=== PATIENT | female | born 1970 | race Caucasian/White ===

== ENCOUNTER 2017-09-22 02:34 | Emergency (ER) | payer OTHER ==
[~2017-09-22] VITALS: Ht 167.6 cm; Wt 69.7 kg
[2017-09-22 02:36] VITALS: BP 169/91
[2017-09-22] MEDS ORDERED: LEVOTHYROXINE (02:46)
[2017-09-22] MEDS ORDERED: ZYRTEC (02:47)
[2017-09-22] MEDS ORDERED: SUMA100T3 PO (02:47)
[2017-09-22] MEDS ORDERED: DIPHENHYDRAMINE 25 MG CAPSULE ONE (03:28)
[2017-09-22] MEDS ORDERED: IBUPROFEN 800 MG TABLET ONE (03:28)
[2017-09-22] MEDS ORDERED: DIPHENHYDRAMINE 25 MG CAPSULE PO ONE (03:30)
[2017-09-22] MEDS ORDERED: IBUPROFEN 200 MG TABLET PO ONE (03:30)
[2017-09-22] MEDS ORDERED: KETOROLAC 30 MG/1 ML ONE (04:00)
[2017-09-22] MEDS ORDERED: ONDANSETRON ODT 4 MG PO ONE (04:00)
[2017-09-22] MEDS ORDERED: ONDANSETRON ODT 4 MG ONE (04:00)
[2017-09-22] MEDS ORDERED: SUMATRIPTAN 6MG/0.5ML SQ ONE ×2 (04:00)
[2017-09-22] MEDS ORDERED: KETOROLAC 30 MG/1 ML IM ONE (04:00)
[2017-09-22] MEDS ORDERED: PROCHLORPERAZINE 10MG TABLET PO ONE (09:00)
== END 2017-09-22 04:37 | disposition home or self-care (01) ==
LOC: ED 04:31
DX: G43.009 Migraine without aura, not intractable, without status migrainosus (principal); F17.200 Nicotine dependence, unspecified, uncomplicated; Z88.5 Allergy status to narcotic agent; Z88.6 Allergy status to analgesic agent
CPT/HCPCS: 96372; 99284; J1885; J3030; Q0162; Q0163; Q0164